=== PATIENT | male | born 1960 | race Caucasian/White ===

== ENCOUNTER 2016-11-08 06:37 | Day surgery (SDC) | payer BC ==
[~2016-11-08 06:37] MED LIST: BEVESPI INHALER INH; BYSTOLIC2.5 M1 PO; LOW DOSE ASPIRI81 M3 PO; [UNRECOGNIZED DRUG - OTHER] PO
[2016-11-08 07:34] LABS: PROTHROMBIN TIME 11.4 SECONDS (9.0-13.6)
== END 2016-11-08 12:20 ==
LOC: ENDOS 06:37 → SHSA 06:41
PROVIDERS: Internal Medicine
PROC: 0B978ZX Drainage of Left Main Bronchus, Via Natural or Artificial Opening Endoscopic, Diagnostic (ICD-10-PCS; principal; 2016-11-08)
DX: R04.2 Hemoptysis (principal); Z79.82 Long term (current) use of aspirin; Z79.899 Other long term (current) drug therapy; Z87.891 Personal history of nicotine dependence; Z98.890 Other specified postprocedural states
CPT/HCPCS: J2250; J3010